=== PATIENT | male | born 1995 | race Caucasian/White ===

== ENCOUNTER 2024-03-12 22:49 | Emergency (ER) | payer MEDICAID ==
[~2024-03-12] VITALS: Ht 180.3 cm; Wt 98.7 kg
[2024-03-12 22:56] VITALS: BP 138/99; PULSE 119; RESP 18; TEMP 98.4; O2SAT 98
[2024-03-12 23:13] VITALS: BP 138/99; PULSE 119; RESP 18; TEMP 98.4; O2SAT 98
[2024-03-12] MEDS: LIDOCAINE 2% 1000 MG/50 ML VIAL INJ ONE (23:44)
[2024-03-12] MEDS: BACITRACIN OINT 500 UNITS/GM PKT TP ONE (23:45)
[2024-03-13] MEDS ORDERED: CYCL-711 PO (00:59)
[2024-03-13] MEDS ORDERED: HYDR-5191 PO (00:59)
[2024-03-13] MEDS ORDERED: IBUP-2218 PO (00:59)
[2024-03-13] MEDS ORDERED: CEPH-588 PO (02:43)
== END 2024-03-13 01:18 | disposition home or self-care (01) ==
LOC: MED 22:49
DX: S62.631A Displaced fracture of distal phalanx of left index finger, initial encounter for closed fracture (principal); S61.311A Laceration without foreign body of left index finger with damage to nail, initial encounter; Z79.899 Other long term (current) drug therapy; W31.2XXA Contact with powered woodworking and forming machines, initial encounter; Y92.89 Other specified places as the place of occurrence of the external cause; Y93.89 Activity, other specified; Y99.8 Other external cause status
CPT/HCPCS: 11760; 12001; 29130; 73140; 90471; 90715; 99285; J2001; Q0092

== ENCOUNTER 2024-03-15 01:35 | Emergency (ER) | payer MEDICAID ==
[~2024-03-15] VITALS: Ht 180.3 cm; Wt 98.9 kg
[~2024-03-15 01:35] MED LIST: CEPH-588 PO; CYCL-711 PO; HYDR-5071 PO; IBUP-2218 PO
[2024-03-15 01:47] VITALS: BP 152/97; PULSE 107; RESP 16; TEMP 98.3; O2SAT 99
[2024-03-15 02:25] VITALS: BP 152/97; PULSE 107; RESP 16; TEMP 98.3; O2SAT 99
== END 2024-03-15 02:25 | disposition home or self-care (01) ==
LOC: MED 01:35
DX: S61.211D Laceration without foreign body of left index finger without damage to nail, subsequent encounter (principal); Z79.1 Long term (current) use of non-steroidal anti-inflammatories (NSAID); Z79.899 Other long term (current) drug therapy; X58.XXXD Exposure to other specified factors, subsequent encounter; Y93.89 Activity, other specified; Y92.89 Other specified places as the place of occurrence of the external cause; Y99.8 Other external cause status
CPT/HCPCS: 99281